=== PATIENT | female | born 1990 | race Caucasian/White ===

== ENCOUNTER 2016-09-19 06:20 | Inpatient (IN) | payer OTHER ==
[~2016-09-19] VITALS: Ht 154.9 cm; Wt 65.8 kg
--- NOTE | ~2016-09-19 | FD ---
ADMIT: 09/19/2016 RM/LOC: 227 [facility] MR#: [id number] [id number] DAISY CARR [address] [place] [address] Final Diagnosis SEX: F AGE: 25 : 1990 ADMISSION DATE: 09/19/2016 DISCHARGE DATE: 09/20/2016 FINAL DIAGNOSES: 1. Status post spontaneous vaginal delivery. 2. Tobacco use during . 3. Rhesus negative. PROCEDURE: 1. Spontaneous vaginal delivery. 2. Removal of epidural catheter. Sakina Reeves MD/ cielo JOB #: [id number] CC: Sakina Reeves MD, Attending Physician FAMILY PHYSICIAN, Family Physician
--- NOTE | ~2016-09-19 | HP ---
ADMIT: 09/19/2016 RM/LOC: 227 [facility] MR#: [id number] [address] DAISY CARR [address] [place] [address] History and Physical SEX: F AGE: 25 : 1990 DATE OF SERVICE: CHIEF COMPLAINT: Induction of labor. HISTORY OF PRESENT ILLNESS: The patient is a 25-year-old, 5, para 2-0- 2-2, with an intrauterine at 39-1/7th weeks by a 5-week ultrasound, who presents to Labor and Delivery for induction of labor secondary to distance from the hospital. PAST MEDICAL HISTORY: 1. Rh negative status. 2. Tobacco use. PAST SURGICAL HISTORY: Tonsillectomy in 1998. FAMILY HISTORY: Paternal aunt with melanoma. Paternal grandmother, sister, maternal grandfather, maternal grandmother, and paternal aunt with diabetes. SOCIAL HISTORY: The patient denies alcohol or illicit drug use. She currently smokes less than one pack of cigarettes per day. 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 MEDICATIONS: vitamins 1 tablet p.o. daily. ALLERGIES: LATEX AND FISH. REVIEW OF SYSTEMS: The patient denies vaginal bleeding, regular contractions, loss of fluid, or decreased movement. OBSTETRICAL LABORATORY DATA: Blood type O negative, antibody screen negative, RPR nonreactive, rubella immune, HIV negative, gonorrhea and chlamydia negative. Hepatitis B surface antigen negative. Diabetic screen of 133. Group B strep negative. PHYSICAL EXAMINATION: GENERAL: Well-developed, well-nourished white female, alert and oriented x3, in no acute distress. VITAL SIGNS: Blood pressure 122/81, pulse 44, respirations 18, temperature 97.7 degrees Fahrenheit. Height 5 feet 0 inches, weight 145 pounds. HEENT: Head is normocephalic, atraumatic. Pupils are equal and round. Extraocular muscles are intact. NECK: Supple. Trachea midline. Thyroid not palpable. HEART: Regular rate and rhythm. LUNGS: Clear to auscultation bilaterally. ABDOMEN: Soft, nontender, and gravid. EXTREMITIES: No clubbing, cyanosis, or edema. NEUROLOGIC: Cranial nerves II through XII grossly intact. 2+ deep tendon reflexes noted. PELVIC: Sterile vaginal examination on admission, reveals the cervix to be 3 ADMIT: 09/19/2016 RM/LOC: 227 [facility] MR#: [id number] [address] DAISY CARR [address] [place] [address] History and Physical SEX: F AGE: 25 : 1990 cm dilated, 70% effaced, -2 station. heart tones are in the 130s with 15 x 15 accelerations, moderate long-term variability, and no decelerations. Regular uterine contractions are noted on the monitor after the initiation of Pitocin every 2 to 4 minutes. ASSESSMENT AND PLAN: 1. This is a 25-year-old, 5, para 2-0-2-2, with intrauterine at 39-1/7th weeks by 5-week ultrasound, who presents to Labor and Delivery for elective induction of labor at term secondary to distance from the hospital. 2. Group B strep negative. No prophylaxis will be provided. 3. Fetus is vertex and overall reassuring. Sakina Reeves MD/ naomi JOB #: [id number] CC: Sakina Reeves, Attending Physician FAMILY PHYSICIAN, Family Physician
[~2016-09-19 06:20] MED LIST: FEOSOL-DPS325 MG PO; IRON18 MG PO; MOTRIN-DPS800 MG PO; PRENATAL VIT1 TAB PO; TYLENOL #3 DPS1 TAB PO; [UNRECOGNIZED DRUG - REMARK]
[2016-09-21] MEDS ORDERED: LAN-O-SOOTHE7 GM TP (14:01)
[2016-09-21] MEDS ORDERED: DERMOPLAST SPRA56 GM PR (14:01)
[2016-09-21] MEDS ORDERED: COLACE-DPS100 MG PO (14:01)
--- NOTE | 2016-10-28 03:27 | OR ---
ADMIT: 09/19/2016 RM/LOC: 227 [facility] MR#: [id number] [address] DAISY CARR [address] [place] [address] Operative/Delivery Room Report SEX: F AGE: 25 : 1990 SURGERY DATE: 09/19/2016 SURGEON: Sakina Reeves MD The patient delivered a viable male by spontaneous vaginal delivery with the aid of the Ritgen maneuver at 1501 hours. Nuchal cord x1 was reduced. The infant was placed on the mother's abdomen, and the cord was doubly clamped and cut. The infant was handed off to the awaiting nurse. Cord blood was sent. The 's weight was 3150 g. scores were 8 and 9. The placenta then delivered spontaneously intact with a three-vessel cord. Twenty units of Pitocin were infused with intravenous fluids. An examination of the perineum revealed no lacerations. Estimated blood loss for the entire procedure was 300 mL. The patient and infant are in her room in stable condition. The epidural catheter was removed intact without difficulty at the conclusion of the procedure. Sakina Reeves MD/ naomi JOB #: [id number] CC: Sakina Reeves, Attending Physician NO FAMILY PHYSICIAN, Family Physician
== END 2016-09-20 15:46 | disposition home or self-care (01) | DRG 775 ==
LOC: 2LDRP 06:20 → BC 06:20 → 2LDRP 06:43 → BC 09-25 08:00
PROVIDERS: ADMIT Obstetrics & Gynecology
PROC: 10E0XZZ Delivery of Products of Conception, External Approach (ICD-10-PCS; principal; 2016-09-19)
PROC: 10907ZC Drainage of Amniotic Fluid, Therapeutic from Products of Conception, Via Natural or Artificial Opening (ICD-10-PCS; principal; 2016-09-19)
PROC: 3E033VJ Introduction of Other Hormone into Peripheral Vein, Percutaneous Approach (ICD-10-PCS; principal; 2016-09-19)
DX: O99.334 Smoking (tobacco) complicating childbirth (principal); O69.81X0 Labor and delivery complicated by cord around neck, without compression, not applicable or unspecified; Z3A.39 39 weeks gestation of pregnancy; Z37.0 Single live birth